=== PATIENT | male | born 1990 | race Caucasian/White ===

== ENCOUNTER 2023-08-03 23:42 | Observation (INO) ==
[2023-08-04] MEDS: Ondansetron 4 mg VIAL 2 MG/ML 2 ml VIAL IV ONE (03:33)
[2023-08-04] MEDS: Lactated Ringers 1000 ml BAG 1,000 ML IV ONE (03:36)
[2023-08-04 06:33] LABS: ABS Basophils 0.1 10^3/uL (0.0-0.1); ABS Lymphocytes 1.9 10^3/uL (1.0-4.8); ABS Monocytes 1.1 10^3/uL (0.0-1.1); ABS Nucleated RBC 0.02 10^3/ul; Hematocrit 42.3 % (38-53); Hemoglobin 14.9 g/dL (13.2-16.3); Lymphocyte % 12.8 %; Mean Corpuscular Hemoglobin 31.4 pg (27-33); Mean Corpuscular Hgb Conc 35.1 g/dL (31-36); Mean Corpuscular Volume 89.5 fL (80-97); Mean Platelet Volume 6.8 fL (7.5-11.2); Nucleated Red Blood Cells % 0.1 %/100WBC (0.0-0.8); Platelet Count 298 10^3/uL (150-450); Red Blood Count 4.73 10^6/uL (4.06-5.63); Red Cell Distribution Width 12.9 % (12-17); White Blood Count 15.1 10^3/uL (3.6-10.2)
[2023-08-04 07:25] LABS: ALT 28 U/L (7-52); Albumin 4.5 g/dL (3.2-5.2); Albumin/Globulin Ratio 1.6 (1-3); Alkaline Phosphatase 56 U/L (35-149); Anion Gap 9 mmol/L (2-16); Blood Urea Nitrogen 13 mg/dL (6-24); CO2 Carbon Dioxide 27 mmol/L (22-32); Calcium 8.9 mg/dL (8.6-10.3); Chloride 105 mmol/L (101-111); Creatinine, Serum 1.08 mg/dL (0.67-1.17); Globulin 2.9 g/dL (2-4); Glucose 118 mg/dL (70-100); Sodium 141 mmol/L (135-145); Total Bilirubin 0.7 mg/dL (0.2-1.0); Total Protein 7.4 g/dL (6.4-8.9); eGFR CKD-EPI 92.3 (>60)
[2023-08-04] MEDS: Iohexol 350 (CONTRAST) 500 ML MDV IV ONE (11:06)
[2023-08-04 15:20] LABS: Potassium Redraw 3.9 mmol/L (3.5-5.0)
[2023-08-04 17:18] VITALS: BP 161/95
== END 2023-08-04 17:59 | disposition home or self-care (01) ==
LOC: EDHOLD 23:42 → ED 23:42
PROVIDERS: ADMIT Internal Medicine; ATTEND Internal Medicine